=== PATIENT | female | born 1950 | race Caucasian/White ===

== ENCOUNTER 2017-03-13 09:13 | Emergency (ER) | payer MEDICARE ==
[2017-03-13 07:35] LABS: BASOPHILS 0.6 %; BASOPHILS ABSOLUTE 0.06 10/3/uL (0.0-0.16); EOSINOPHILS 1.2 %; EOSINOPHILS ABSOLUTE 0.12 10/3/uL (0.0-0.53); ER CBC TAT 0 Hrs 11 Mins; HEMATOCRIT 28.7 % (36.0-48.0); HEMOGLOBIN 10.2 g/dL (12.0-16.0); IMMATURE GRANULOCYTES 0.8 %; IMMATURE GRANULOCYTES ABSOLUTE 0.08 10/3/uL (0.0-0.11); LYMPHOCYTES 15.9 %; LYMPHOCYTES ABSOLUTE 1.61 10/3/uL (0.67-4.30); MEAN CORPUS HGB CONC 35.5 g/dL (32.0-36.0); MEAN CORPUSCULAR HEMOGLOB 36.2 pg (26.0-34.0); MEAN CORPUSCULAR VOLUME 101.8 fL (80-100); MEAN PLATELET VOLUME 10.1 fL (9.2-13.0); MONOCYTES 9.7 %; MONOCYTES ABSOLUTE 0.98 10/3/uL (0.21-1.20); NEUTROPHILS 71.8 %; NEUTROPHILS ABSOLUTE 7.26 10/3/uL (2.02-8.40); RED CELL COUNT 2.82 10/6/uL (4.0-5.6); WHITE BLOOD CELLS 10.1 10/3/uL (4.5-10.5)
[2017-03-13 07:36] LABS: MANUAL DIFF NO %; PLATELET COUNT 170 10/3/uL (150-400)
[2017-03-13 07:44] LABS: A/G RATIO 0.9 (0.7-1.9); ALBUMIN 3.4 G/DL (3.5-5.0); BUN (BLOOD UREA NITROGEN) 17 MG/DL (6-23); CALCIUM, SERUM 9.3 MG/DL (8.5-10.4); CHLORIDE, SERUM 94 MMOL/L (96-112); CO2 (CARBON DIOXIDE) 27 MMOL/L (24-34); CREATININE 1.33 MG/DL (0.55-1.02); GFR AFRICAN AMERICAN 48 ML/MIN (>=60); GFR NON AFRICAN AMERICAN 41 ML/MIN (>=60); GLOBULIN 3.7 G/DL (2.5-4.1); GLUCOSE, SERUM 110 MG/DL (60-99); SGPT(ALT) 37 U/L (5-65); SODIUM, SERUM 129 MMOL/L (135-148); TOTAL PROTEIN 7.1 G/DL (6.0-8.5)
[2017-03-13 07:47] LABS: ALKALINE PHOSPHATASE 144 U/L (45-117); POTASSIUM, SERUM 4.6 MMOL/L (3.5-5.3); SGOT(AST) 79 U/L (5-40); TOTAL BILIRUBIN 8.9 MG/DL (0-1.2)
[2017-03-13 08:32] LABS: BASOPHILS 0.4 %; BASOPHILS ABSOLUTE 0.06 10/3/uL (0.0-0.16); EOSINOPHILS 0.9 %; EOSINOPHILS ABSOLUTE 0.13 10/3/uL (0.0-0.53); HEMATOCRIT 25.9 % (36.0-48.0); HEMOGLOBIN 9.3 g/dL (12.0-16.0); IMMATURE GRANULOCYTES 0.8 %; IMMATURE GRANULOCYTES ABSOLUTE 0.11 10/3/uL (0.0-0.11); LYMPHOCYTES ABSOLUTE 2.21 10/3/uL (0.67-4.30); MANUAL DIFF NO %; MEAN CORPUS HGB CONC 35.9 g/dL (32.0-36.0); MEAN CORPUSCULAR VOLUME 100.4 fL (80-100); MEAN PLATELET VOLUME 9.5 fL (9.2-13.0); MONOCYTES 10.4 %; MONOCYTES ABSOLUTE 1.43 10/3/uL (0.21-1.20); NEUTROPHILS 71.5 %; NEUTROPHILS ABSOLUTE 9.83 10/3/uL (2.02-8.40); PLATELET COUNT 159 10/3/uL (150-400); RBC DISTRIBUTION WIDTH 14.9 % (12.0-16.0); RED CELL COUNT 2.58 10/6/uL (4.0-5.6); WHITE BLOOD CELLS 13.8 10/3/uL (4.5-10.5)
[2017-03-13 08:37] LABS: INTERNATIONAL NORMAL RATI 3.1 UNITS (-); PARTIAL THROMBO TIME 40.5 SEC (22.5-37.2); PROTIME (NOT ORD) 31.8 SEC (12.0-14.5)
[2017-03-13 08:51] LABS: BUN (BLOOD UREA NITROGEN) 16 MG/DL (6-23); CALCIUM, SERUM 9.5 MG/DL (8.5-10.4); CHEST PAIN PROFILE TAT 0 Hrs 25 Mins; CHLORIDE, SERUM 95 MMOL/L (96-112); CO2 (CARBON DIOXIDE) 24 MMOL/L (24-34); CREATININE 1.24 MG/DL (0.55-1.02); GFR AFRICAN AMERICAN 52 ML/MIN (>=60); GFR NON AFRICAN AMERICAN 45 ML/MIN (>=60); GLUCOSE, SERUM 112 MG/DL (60-99); POTASSIUM, SERUM 3.4 MMOL/L (3.5-5.3); SODIUM, SERUM 132 MMOL/L (135-148); TROPONIN I 0.03 NG/ML (<0.05)
[~2017-03-13 09:13] MED LIST: CELLCEPT2 PO; CONSTULOSE PO; COR20 PO; Generlac 10 Gm/15 Ml; KLOR-CON M2020 MEQ PO; L40 PO; L80 PO; SPIR100 PO; SPIRO50 PO; URSO FORTE500 MG PO
== END 2017-03-13 21:00 | disposition home or self-care (01) ==
LOC: ER 09:13 → SSU1 12:25
PROVIDERS: Nurse Practitioner Family
DX: R18.8 Other ascites (principal); J90 Pleural effusion, not elsewhere classified; Z87.891 Personal history of nicotine dependence; Z88.2 Allergy status to sulfonamides; Z88.5 Allergy status to narcotic agent; Z79.899 Other long term (current) drug therapy
CPT/HCPCS: 32555; 36415; 49083; 71010; 73030-LT; 74176; 80048; 80053; 81001; 83690; 83735; 83880; 84484; 85025; 85610; 85730; 86850; 86900; 86901; 87040; 89051; 93005; 96374; 96375; 99285; J1170; J2405; P9047; P9059

== ENCOUNTER 2017-03-18 08:56 | Emergency (ER) | payer MEDICARE ==
[2017-03-18 08:45] LABS: BASOPHILS 0.6 %; BASOPHILS ABSOLUTE 0.06 10/3/uL (0.0-0.16); EOSINOPHILS 1.7 %; EOSINOPHILS ABSOLUTE 0.16 10/3/uL (0.0-0.53); ER CBC TAT 0 Hrs 09 Mins; HEMATOCRIT 27.2 % (36.0-48.0); HEMOGLOBIN 9.5 g/dL (12.0-16.0); IMMATURE GRANULOCYTES 0.7 %; IMMATURE GRANULOCYTES ABSOLUTE 0.07 10/3/uL (0.0-0.11); LYMPHOCYTES 23.3 %; LYMPHOCYTES ABSOLUTE 2.19 10/3/uL (0.67-4.30); MANUAL DIFF NO %; MEAN CORPUS HGB CONC 34.9 g/dL (32.0-36.0); MEAN CORPUSCULAR HEMOGLOB 35.7 pg (26.0-34.0); MEAN CORPUSCULAR VOLUME 102.3 fL (80-100); MEAN PLATELET VOLUME 8.6 fL (9.2-13.0); MONOCYTES ABSOLUTE 1.69 10/3/uL (0.21-1.20); NEUTROPHILS 55.7 %; NEUTROPHILS ABSOLUTE 5.23 10/3/uL (2.02-8.40); PLATELET COUNT 145 10/3/uL (150-400); RBC DISTRIBUTION WIDTH 15.1 % (12.0-16.0); RED CELL COUNT 2.66 10/6/uL (4.0-5.6); WHITE BLOOD CELLS 9.4 10/3/uL (4.5-10.5)
[2017-03-18 08:53] LABS: ASCORBIC ACID (UR NOT ORDER) 20 (NEG); BILIRUBIN, URINE NEGATIVE (NEG); ER URINALYSIS TAT 0 Hrs 41 Mins; KETONE, URINE NEGATIVE (NEG); LEUKOCYTE ESTERASE(NOT OR NEG (NEG); NITRITE (URINE) NEG (NEG); WBC (NOT ORDERED) (RFLEX) 2 (0-5)
[2017-03-18 09:02] LABS: INTERNATIONAL NORMAL RATI 2.6 UNITS (-); PARTIAL THROMBO TIME 40.2 SEC (22.5-37.2); PROTIME (NOT ORD) 27.9 SEC (12.0-14.5)
[2017-03-18 09:04] LABS: ALBUMIN 3.5 G/DL (3.5-5.0); CALCIUM, SERUM 9.3 MG/DL (8.5-10.4); CHLORIDE, SERUM 96 MMOL/L (96-112); CREATININE 1.28 MG/DL (0.55-1.02); GFR AFRICAN AMERICAN 50 ML/MIN (>=60); GFR NON AFRICAN AMERICAN 43 ML/MIN (>=60); GLOBULIN 3.4 G/DL (2.5-4.1); GLUCOSE, SERUM 104 MG/DL (60-99); POTASSIUM, SERUM 3.7 MMOL/L (3.5-5.3); SGOT(AST) 37 U/L (5-40); SGPT(ALT) 32 U/L (5-65); SODIUM, SERUM 136 MMOL/L (135-148); TOTAL BILIRUBIN 8.5 MG/DL (0-1.2); TOTAL PROTEIN 6.9 G/DL (6.0-8.5)
[2017-03-18 09:06] LABS: ALKALINE PHOSPHATASE 158 U/L (45-117); BUN (BLOOD UREA NITROGEN) 20 MG/DL (6-23); CO2 (CARBON DIOXIDE) 32 MMOL/L (24-34); DIRECT BILIRUBIN 3.9 MG/DL (0.0-0.4); INDIRECT BILIRUBIN(NOT ORDER) 4.6 MG/DL (0.1-0.9); LACTATE 2.4 MMOL/L (0.3-2.4)
[2017-03-18 09:57] LABS: PROCALCITONIN 0.33 ng/mL (<0.5)
== END 2017-03-18 12:28 | disposition home or self-care (01) ==
LOC: ER 08:56
PROVIDERS: Nurse Practitioner
DX: R06.02 Shortness of breath (principal); R11.0 Nausea; K72.90 Hepatic failure, unspecified without coma; E11.9 Type 2 diabetes mellitus without complications; Z88.2 Allergy status to sulfonamides; Z88.5 Allergy status to narcotic agent; Z79.899 Other long term (current) drug therapy
CPT/HCPCS: 71010; 80053; 81001; 82248; 83605; 84145; 85025; 85610; 85730; 87040; 93005; 96374; 99285; J2405

== ENCOUNTER 2017-04-05 23:45 | Inpatient (IN) | payer MEDICARE ==
--- NOTE | ~2017-04-05 | HP ---
History And Physical [facility] [address] [place]. [address] NAME: ARELIS STEVEN : 48 STATUS : [facility]#: [id number] AGE: 66 ADM/REG DATE : 04/06/17 MR#: [id number] REPORT SERV DATE: 04/06/17 DICTATED BY: DAVION STROUD DATE: 04/06/17 REPORT STATUS : Draft TRANSCRIBED BY: MODL DATE: 04/06/17 DATE OF ADMISSION: 04/05/2017 POINT OF ENTRY: [facility] Emergency Department. PRIMARY CARE PHYSICIAN: Sue Hernandez M.D. PRIMARY COLLEGE ASSOCIATE: Kain Atkinson M.D. CHIEF COMPLAINT: Nausea, vomiting, abdominal pain, and shortness of breath. HISTORY OF PRESENT ILLNESS: Ms. 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 The patient states she last had a thoracentesis and paracentesis approximately three weeks ago. states that they did not completely remove all the ascitic fluid as she was becoming hypotensive, they stopped at 7 L. The patient states she had been doing well up until about two or three days ago when she started to develop intractable nausea and vomiting. She was unable to keep any food or liquid down including her home medications. She has noticed some scant almost strandy like blood in her sputum versus her emesis. She subsequently developed some bilateral lower quadrant abdominal pain as well as some shortness of breath, primarily associated to her vomiting episodes. She denies any recent fevers, night sweats, chills, chest pain, palpitations, cough, sputum production, diarrhea, melena, or hematochezia. She does state that she has not had a bowel movement for the past two days in the same time period that she has been unable to keep down her lactulose. Initial evaluation in the emergency department noted for labs with a bilirubin of 10.9, ALT 50, white count 48313. INR and ammonia level are pending. CT scan of the abdomen and pelvis shows a large right pleural effusion as well as diffuse soft tissue edema and large abdominal pelvic ascites. She was subsequently admitted to the Hospitalist Service for further evaluation and management. PREVIOUS MEDICAL HISTORY: 1. End-stage liver disease and hepatic cirrhosis secondary to nonalcoholic steatohepatitis and alpha-1 antitrypsin. 2. Esophageal varices. 3. Recurrent abdominal ascites, requiring multiple paracenteses. 4. Hepatic hydrothorax requiring multiple thoracenteses. 5. Portal hypertension. History And Physical [address] [address] NAME: ARELIS STEVEN : [birth year] STATUS : ADM [facility]#: [id number] AGE: 66 ADM/REG DATE : 04/06/17 MR#: [id number] REPORT SERV DATE: 04/06/17 DICTATED BY: DAVION STROUD DATE: 04/06/17 REPORT STATUS : Draft TRANSCRIBED BY: DEBBI DATE: 04/06/17 6. Morbid obesity. 7. History of hepatic encephalopathy. 8. Reported diagnosis of diabetes, not on any medications. SURGICAL HISTORY: 1. Tubal ligation. 2. Left total knee. ALLERGIES: TO MORPHINE AND SULFA DRUGS. HOME MEDICATIONS: 1. Lasix 80 mg daily. 2. Aldactone 100 mg daily. 3. Lactulose 10 g b.i.d. SOCIAL HISTORY: Denies any tobacco, alcohol, or illicits. She is a former smoker, but a lifelong nondrinker. FAMILY HISTORY: Mother with COPD. Father with lung cancer. LABS IMAGIN. White count 16.2, hemoglobin 10.7, hematocrit is 30.4 platelet count is 210. INR is pending. 2. Sodium is 132, potassium 3.4, chloride 95, carbon dioxide 26, BUN 14, creatinine 1.38, glucose is 123, calcium is 9.6, protein 7.2, albumin 3.0, bilirubin is 10.9, ALT is 33, AST 50, and alkaline phosphatase is 157. 3. Lipase 205. 4. Troponin 0.02. BNP is 31. 5. EKG per my review shows sinus tachycardia, heart rate 119. No evidence of any acute ischemia or infarction. 6. CT scan of the abdomen and pelvis shows large right pleural effusion, diffuse soft tissue edema as well as large abdominal and pelvic ascites. PHYSICAL EXAMINATION: VITAL SIGNS: Temperature is 98.6 degrees Fahrenheit, pulse is 119, respirations 22, saturating 97% on room air. Blood pressure 120/54. On recheck blood pressure is now 113/61, pulse is still 116, saturating 91% on 2 L by nasal cannula. GENERAL: The patient is awake, alert, in no acute distress. Resting comfortably. She is a chronically ill-appearing female who appears uncomfortable but nontoxic, at bedside. HEENT: Atraumatic and normocephalic. Moist mucous membranes. Pupils are equal, round, reactive to light and accommodation. Slightly dry mucous membranes. Does have some mild scleral icterus. NECK: No jugular venous distention. No carotid bruits. CARDIAC: Tachycardic rate, regular rhythm, 2/6 systolic murmur heard best over left lower sternal border. LUNGS: Clear to auscultation on the left side. The patient has decreased almost absent History And Physical [address] [address] NAME: ARELIS STEVEN : 48 STATUS : [facility]#: [id number] AGE: 66 ADM/REG DATE : 04/06/17 MR#: [id number] REPORT SERV DATE: 04/06/17 DICTATED BY: DAVION STROUD DATE: 04/06/17 REPORT STATUS : Draft TRANSCRIBED BY: DEBBI DATE: 04/06/17 breath sounds in the bottom two-thirds of the right lung ma secondary to her pleural effusion. She is on oxygen, but in no respiratory distress. ABDOMEN: Obese soft, mildly tender to palpation bilateral lower quadrants with some positive ascitic fluid wave. EXTREMITIES: Warm and perfused with 1+ lower extremity edema. SKIN: Warm and dry with some mild jaundice. PSYCH: Affect appropriate. NEURO: Alert and oriented x3. Cranial nerves 2 through 12 grossly intact. Speech is normal. Gait not assessed. ASSESSMENT AND PLAN: Ms. Steven is a 66-year-old female, who presents with a two-day history of nausea, vomiting, abdominal pain, shortness of breath, and inability to tolerate oral intake including her medications. PROBLEM LIST: 1. Recurrent abdominal ascites. 2. Recurrent hepatic hydrothorax. 3. End-stage liver disease. 4. Abdominal pain with concern for possible SBP. 5. History of hepatic encephalopathy. 6. Hyponatremia. 7. Hypokalemia. 8. Nausea and vomiting. PLAN: 1. For recurrent abdominal pelvic ascites, we will schedule patient for therapeutic as well as diagnostic paracentesis in the morning. Provide a postprocedural albumin. Continue patient's home Lasix and Aldactone. 2. Recurrent hepatic hydrothorax. Given patient's shortness of breath as well as hypoxemia, we will schedule her for a therapeutic thoracentesis despite the fact that risk of recurrences are especially high in hepatic hydrothorax. 3. End-stage liver disease. Continue the patient's lactulose, Lasix, and Aldactone. We will consult Dr. Atkinson for assistance. Her MELD score is pending as I am awaiting an INR level. I anticipate it to be very high. Of note, she is on the transplant list at [facility], is being followed closely there. 4. Abdominal pain with concern for SBP. Given patient's nausea, vomiting, abdominal pain, as well as leukocytosis, I am concerned for possible SBP. We will place the patient empirically on antibiotics and instructed for diagnostic paracentesis in the morning. 5. History of hepatic encephalopathy. Checking ammonia level, especially in light of not being able to tolerate her lactulose from last two days. 6. Nausea and vomiting. Provide supportive care. I suspect this is all due to underlying chronic medical conditions, as well as enlarging abdominal ascites. Lipase within normal limits. CT scan of abdomen and pelvis unremarkable except for the above- mentioned issues. 7. DVT prophylaxis. TEDs and SCDs as she is at extreme bleeding risk. CODE STATUS: The patient wished to be DNR DNI. This was confirmed with the patient. History And Physical [address] [place]. [address] NAME: ARELIS STEVEN : 48 STATUS : ADM IN PAT#: [id number] AGE: 66 ADM/REG DATE : 04/06/17 MR#: [id number] REPORT SERV DATE: 04/06/17 DICTATED BY: DAVION STROUD DATE: 04/06/17 REPORT STATUS : Draft TRANSCRIBED BY: DEBBI DATE: 04/06/17 NINOSKA/DEBBI Davion Stroud MD / [id number] CC: Scar Laureano M.D.
--- NOTE | ~2017-04-05 | CN ---
Consultation Report [facility] [address] [place]. [address] NAME: ARELIS STEVEN : 48 STATUS : ADM IN [facility]#: [id number] AGE: 66 ADM/REG DATE : 04/06/17 MR#: [id number] REPORT SERV DATE: 04/06/17 DICTATED BY: JACINTO LYNN DATE: 04/06/17 REPORT STATUS : Draft TRANSCRIBED BY: MODL DATE: 04/06/17 GI CONSULT DATE OF CONSULTATION: 04/06/2017 REASON FOR CONSULTATION: Regarding ascites and end-stage liver disease. HISTORY OF PRESENT ILLNESS: This is a 66-year-old woman, who has had decline recently including symptoms of fatigue and increasing abdominal distention with shortness of breath. She was admitted and found to have a MELD score of 35 as below. She has had no abdominal pain, diarrhea, constipation, melena or hematochezia. No vomiting or dysphagia. She has had recurrent thoracentesis and paracentesis recently. MEDICAL HISTORY: Remarkable for end-stage liver disease with cirrhosis secondary to DELA CRUZ and alpha-1 antitrypsin by report. Esophageal varices, abdominal ascites, hepatic hydrothorax, portal hypertension, morbid obesity, history of hepatic encephalopathy, diabetes, tubal ligation, left total knee. ALLERGIES: MORPHINE AND SULFA. MEDICATIONS: At home, Lasix, lactulose, Aldactone. SOCIAL HISTORY: She does not use alcohol or tobacco significantly. FAMILY HISTORY: Negative for GI malignancy. REVIEW OF SYSTEMS: A complete review of systems was obtained and negative except that noted in the history of present illness. PHYSICAL EXAMINATION: VITAL SIGNS: She is currently afebrile. Temperature is 97.7, pulse 100, respirations 16, blood pressure 114/53. HEENT: Sclerae anicteric. NECK: Supple without lymphadenopathy. Pharynx is pink without exudate. LUNGS: Clear to auscultation over the anterior chest wall, diminished at the right base. HEART: Regular rate and rhythm. S1 and S2 heard without rubs or gallops. ABDOMEN: Normal bowel sounds. Belly is soft, but mildly distended. It is nontender. There is a fluid shift. EXTREMITIES: Symmetric pitting edema bilaterally and mild. She is alert and oriented without focal deficit. No asterixis. Muscle exam is nontender. DATA: White blood cell count 26.1, hematocrit 30.5, MCV 102.3, platelets 184. INR is 3.3. Sodium 130, creatinine 1.88. Bilirubin 10.9, alkaline phosphatase 157, ALT 33, AST is 50, Consultation Report [facility] [id number] [place]. [address] NAME: ARELIS STEVEN : 48 STATUS : ADM IN PAT#: [id number] AGE: 66 ADM/REG DATE : 04/06/17 MR#: [id number] REPORT SERV DATE: 04/06/17 DICTATED BY: JACINTO LYNN DATE: 04/06/17 REPORT STATUS : Draft TRANSCRIBED BY: MODL DATE: 04/06/[address] scan abdomen and pelvis negative except for ascites. Troponin negative. IMPRESSION: 1. Cirrhosis with hepatic failure with MELD score 35. 2. Leukocytosis. 3. Acute on chronic kidney disease. 4. Ascites. 5. Hepatic encephalopathy. 6. Esophageal varices. RECOMMENDATIONS: 1. Continue supportive medications including diuretics, lactulose, and antibiotics. 2. Diagnostic paracentesis planned once INR is brought down a bit. 3. We will call and discuss with [facility] regarding her liver transplant candidacy. CC/MODL Jacinto Lynn M.D. / [id number] CC: DO Kain Vivar M.D.
--- NOTE | ~2017-04-05 | DS ---
Discharge Summary [facility] [address] [place]. [address] NAME: ARELIS STEVEN : 48 STATUS : DIS IN PAT#: [id number] AGE: 66 ADM/REG DATE : 04/06/17 MR#: [id number] REPORT SERV DATE: 04/07/17 DICTATED BY: IVETH AMBROSE DATE: 04/06/17 REPORT STATUS : Draft TRANSCRIBED BY: MODL DATE: 04/06/17 ADMISSION DATE: 04/06/2017 DISCHARGE DATE: 04/07/2017 HOSPITAL COURSE: A very unfortunate, 66-year-old female, who had cirrhosis for the past two or three years, three paracenteses in the last 12 months, comes in with end-stage liver disease with decompensation, MELD of 35, INR of 3.3, anasarca, got a paracentesis of 7 L three weeks ago and got hypotensive, needs for anasarca, also development of hepatorenal syndrome, leukocytosis [id number], swan culture. Adding Flagyl, the IV Rocephin, still waiting a paracentesis, have to reverse her INR with FFPs and vitamin K prior. I spoke to [place] speaking Dr. Lynn. Needs a liver transplant stat, otherwise the patient's MELD will likely translates into a poor demise for the patient. TRANSFER DIAGNOSIS: See progress note. TRANSFER MEDICATIONS: See the chart. DICTATED BY: DO PATRICK Vivar/DEBBI Iveth Ambrose DO / [id number] CC: Iveth Ambrose DO
[2017-04-06 00:27] LABS: BASOPHILS 0.3 %; BASOPHILS ABSOLUTE 0.05 10/3/uL (0.0-0.16); EOSINOPHILS 0.8 %; EOSINOPHILS ABSOLUTE 0.13 10/3/uL (0.0-0.53); HEMOGLOBIN 10.7 g/dL (12.0-16.0); IMMATURE GRANULOCYTES 0.6 %; IMMATURE GRANULOCYTES ABSOLUTE 0.09 10/3/uL (0.0-0.11); LYMPHOCYTES 13.9 %; LYMPHOCYTES ABSOLUTE 2.27 10/3/uL (0.67-4.30); MEAN CORPUS HGB CONC 35.2 g/dL (32.0-36.0); MEAN CORPUSCULAR HEMOGLOB 35.7 pg (26.0-34.0); MEAN CORPUSCULAR VOLUME 101.3 fL (80-100); MONOCYTES 5.9 %; MONOCYTES ABSOLUTE 0.97 10/3/uL (0.21-1.20); NEUTROPHILS 78.5 %; NEUTROPHILS ABSOLUTE 12.82 10/3/uL (2.02-8.40); PLATELET COUNT 210 10/3/uL (150-400); RBC DISTRIBUTION WIDTH 16.1 % (12.0-16.0)
[2017-04-06 00:30] LABS: ER CBC TAT 0 Hrs 07 Mins; HEMATOCRIT 30.4 % (36.0-48.0); MANUAL DIFF NO %; WHITE BLOOD CELLS 16.3 10/3/uL (4.5-10.5)
[2017-04-06 01:47] LABS: A/G RATIO 0.7 (0.7-1.9); ALKALINE PHOSPHATASE 157 U/L (45-117); BUN (BLOOD UREA NITROGEN) 14 MG/DL (6-23); CALCIUM, SERUM 9.6 MG/DL (8.5-10.4); CHLORIDE, SERUM 95 MMOL/L (96-112); CO2 (CARBON DIOXIDE) 26 MMOL/L (24-34); CREATININE 1.38 MG/DL (0.55-1.02); GFR AFRICAN AMERICAN 46 ML/MIN (>=60); GFR NON AFRICAN AMERICAN 39 ML/MIN (>=60); GLOBULIN 4.2 G/DL (2.5-4.1); GLUCOSE, SERUM 123 MG/DL (60-99); POTASSIUM, SERUM 3.4 MMOL/L (3.5-5.3); SGOT(AST) 50 U/L (5-40); SGPT(ALT) 33 U/L (5-65); SODIUM, SERUM 132 MMOL/L (135-148); TOTAL BILIRUBIN 10.9 MG/DL (0-1.2); TOTAL PROTEIN 7.2 G/DL (6.0-8.5); TROPONIN I 0.02 NG/ML (<0.05)
[2017-04-06] MEDS ORDERED: L80 PO (02:04)
[2017-04-06] MEDS ORDERED: SPIR100 PO (02:04)
[2017-04-06] MEDS ORDERED: CONSTULOSE PO (02:05)
[2017-04-06 03:12] LABS: INTERNATIONAL NORMAL RATI 2.8 UNITS (-); PARTIAL THROMBO TIME 41.6 SEC (22.5-37.2); PROTIME (NOT ORD) 29.2 SEC (12.0-14.5)
[2017-04-06 07:13] LABS: HEMATOCRIT 30.5 % (36.0-48.0); HEMOGLOBIN 10.4 g/dL (12.0-16.0); MEAN CORPUS HGB CONC 34.1 g/dL (32.0-36.0); MEAN CORPUSCULAR HEMOGLOB 34.9 pg (26.0-34.0); MEAN CORPUSCULAR VOLUME 102.3 fL (80-100); PLATELET COUNT 184 10/3/uL (150-400); RBC DISTRIBUTION WIDTH 15.6 % (12.0-16.0); RED CELL COUNT 2.98 10/6/uL (4.0-5.6)
[2017-04-06 07:17] LABS: INTERNATIONAL NORMAL RATI 3.3 UNITS (-); PARTIAL THROMBO TIME 41.6 SEC (22.5-37.2); PROTIME (NOT ORD) 33.1 SEC (12.0-14.5)
[2017-04-06 07:21] LABS: WHITE BLOOD CELLS 26.1 10/3/uL (4.5-10.5)
[2017-04-06 07:23] LABS: MANUAL DIFF YES %
[2017-04-06 07:25] LABS: BUN (BLOOD UREA NITROGEN) 15 MG/DL (6-23); CALCIUM, SERUM 9.6 MG/DL (8.5-10.4); CHLORIDE, SERUM 94 MMOL/L (96-112); CO2 (CARBON DIOXIDE) 22 MMOL/L (24-34); CREATININE 1.88 MG/DL (0.55-1.02); GFR AFRICAN AMERICAN 31 ML/MIN (>=60); GFR NON AFRICAN AMERICAN 27 ML/MIN (>=60); GLUCOSE, SERUM 139 MG/DL (60-99); PHOSPHORUS, SERUM 3.9 MG/DL (2.5-4.5); POTASSIUM, SERUM 3.7 MMOL/L (3.5-5.3); SODIUM, SERUM 130 MMOL/L (135-148)
[2017-04-06 07:27] LABS: TOTAL PROTEIN 7.5 G/DL (6.0-8.5)
[2017-04-06 07:44] LABS: BAND NEUTROPHILS 20 %; LYMPHOCYTES 4 %; LYMPHOCYTES ABSOLUTE (CALC) 1.04 10/3/uL (0.67-4.30); MACROCYTES 1+ (5-10/OIF) (0-5/OIF); MONOCYTES 4 %; MONOCYTES ABSOLUTE (CALC) 1.04 10/3/uL (0.21-1.20); NEUTROPHILS ABSOLUTE (CALC) 24.01 10/3/uL (2.02-8.40); PLATELET ESTIMATE ADQ (ADEQUATE); SEGMENTED NEUTROPHIL (0) 72 %; TOTAL NUCLEATED CELLS 100
[2017-04-06 18:45] LABS: HEMATOCRIT 27.2 % (36.0-48.0); HEMOGLOBIN 9.3 g/dL (12.0-16.0); MEAN CORPUS HGB CONC 34.2 g/dL (32.0-36.0); MEAN CORPUSCULAR HEMOGLOB 35.4 pg (26.0-34.0); MEAN CORPUSCULAR VOLUME 103.4 fL (80-100); MEAN PLATELET VOLUME 9.3 fL (9.2-13.0); PLATELET COUNT 136 10/3/uL (150-400); RBC DISTRIBUTION WIDTH 15.9 % (12.0-16.0); RED CELL COUNT 2.63 10/6/uL (4.0-5.6); WHITE BLOOD CELLS 25.5 10/3/uL (4.5-10.5)
[2017-04-06 18:54] LABS: INTERNATIONAL NORMAL RATI 3.6 UNITS (-); PROTIME (NOT ORD) 35.9 SEC (12.0-14.5)
[2017-04-06 19:10] LABS: A/G RATIO 0.6 (0.7-1.9); ALBUMIN 2.6 G/DL (3.5-5.0); CALCIUM, SERUM 9.4 MG/DL (8.5-10.4); CHLORIDE, SERUM 93 MMOL/L (96-112); CO2 (CARBON DIOXIDE) 23 MMOL/L (24-34); GFR AFRICAN AMERICAN 28 ML/MIN (>=60); GFR NON AFRICAN AMERICAN 24 ML/MIN (>=60); GLOBULIN 4.1 G/DL (2.5-4.1); GLUCOSE, SERUM 155 MG/DL (60-99); POTASSIUM, SERUM 3.8 MMOL/L (3.5-5.3); SGOT(AST) 50 U/L (5-40); SGPT(ALT) 31 U/L (5-65); SODIUM, SERUM 128 MMOL/L (135-148); TOTAL PROTEIN 6.7 G/DL (6.0-8.5)
[2017-04-06 19:12] LABS: ALKALINE PHOSPHATASE 107 U/L (45-117); BUN (BLOOD UREA NITROGEN) 20 MG/DL (6-23); TOTAL BILIRUBIN 12.3 MG/DL (0-1.2)
[2017-04-06 19:41] LABS: MANUAL DIFF NO %
[2017-04-07 02:15] LABS: ASCORBIC ACID (UR NOT ORDER) NEG (NEG); BILIRUBIN, URINE NEGATIVE (NEG); KETONE, URINE NEGATIVE (NEG); WBC (NOT ORDERED) (RFLEX) 7 (0-5)
[2017-04-07 02:20] LABS: LEUKOCYTE ESTERASE(NOT OR TRACE (NEG)
== END 2017-04-07 02:34 | disposition short-term general hospital (02) | DRG 441 ==
LOC: ER 23:45 → 4SO 04-06 04:04
PROVIDERS: Internal Medicine; Nurse Practitioner
DX: K75.81 Nonalcoholic steatohepatitis (NASH) (principal); K76.7 Hepatorenal syndrome; R18.8 Other ascites; K76.6 Portal hypertension; E87.1 Hypo-osmolality and hyponatremia; E66.01 Morbid (severe) obesity due to excess calories; K74.69 Other cirrhosis of liver; E11.9 Type 2 diabetes mellitus without complications; Z96.652 Presence of left artificial knee joint; Z79.899 Other long term (current) drug therapy; Z87.891 Personal history of nicotine dependence; E87.6 Hypokalemia; R11.2 Nausea with vomiting, unspecified; Z88.2 Allergy status to sulfonamides; Z88.5 Allergy status to narcotic agent; Z68.30 Body mass index [BMI] 30.0-30.9, adult
CPT/HCPCS: 71010; 74176; 80053; 80069; 81001; 82040; 82140; 82962; 83605; 83690; 83880; 84145; 84155; 84484; 85025; 85610; 85730; 87040; 93005; 96374; 96375; 96376; 99285; A9270-GY; C9113; J1170; J2405; J3430